=== PATIENT | female | born 1955 | race Caucasian/White ===

== ENCOUNTER 2018-08-16 14:50 | Outpatient (REF) | payer BC, SELFPAY ==
[2018-08-16 21:46] LABS: Anion Gap 13.3 mmol/L (3-11); BUN 17 mg/dL (7-18); CO2 25.7 mmol/L (21.0-32.0); Calcium 8.9 mg/dL (8.5-10.1); Chloride 103 mmol/L (98-107); Cholesterol 189 mg/dL (50-200); Glucose 100 mg/dL (70-100); HDL Cholesterol 56 mg/dL (40-60); LDL CHOLESTEROL 109 mg/dL (<100); Potassium 4.3 mmol/L (3.5-5.1); Sodium 142 mmol/L (136-145); Triglyceride 137 mg/dL (30-150)
[2018-08-16 23:18] LABS: Hemoglobin A1C 6.1 % (4.5-6.2)
== END 2018-08-16 15:10 ==
LOC: NCHCN 14:50
PROVIDERS: PCP Nurse Practitioner Family; Visit Provider Nurse Practitioner Family
DX: M79.631 Pain in right forearm (principal); Z51.81 Encounter for therapeutic drug level monitoring; I10 Essential (primary) hypertension
CPT/HCPCS: 80048; 80061; 83721; 83036

== ENCOUNTER 2018-12-20 10:06 | Outpatient (REF) | payer BC, SELFPAY ==
[2018-12-21 10:23] LABS: TSH 5.71 uIU/mL (0.358-3.74)
[2018-12-21 14:15] LABS: FREE T4 0.96 ng/dL (0.76-1.46)
[2018-12-23 10:26] LABS: Thyroglobulin Antibody 17 U/mL (<61); Thyroperoxidase Antibody 152 U/mL (<61)
== END 2018-12-20 10:26 ==
LOC: NCHCN 10:06
PROVIDERS: PCP Nurse Practitioner Family; Visit Provider Nurse Practitioner Family
DX: R94.6 Abnormal results of thyroid function studies (principal)
CPT/HCPCS: 84439; 84443; 86376; 86800

== ENCOUNTER 2019-11-27 10:06 | Outpatient (REF) | payer BC, SELFPAY ==
[2019-11-27 21:15] LABS: TSH 1.23 uIU/mL (0.36-3.74)
== END 2019-11-27 10:26 ==
LOC: NCHCN 10:06
PROVIDERS: PCP Nurse Practitioner Family; Visit Provider Registered Nurse
DX: E03.9 Hypothyroidism, unspecified (principal)
CPT/HCPCS: 84443

== ENCOUNTER 2020-01-17 14:03 | Outpatient (REF) | payer BC, SELFPAY ==
[2020-01-17 22:19] LABS: Anion Gap 12.6 mmol/L (3-11); BUN 21 mg/dL (7-18); CO2 25.4 mmol/L (21.0-32.0); CREATININE 0.91 mg/dL (0.55-1.02); Chloride 103 mmol/L (98-107); Glucose 105 mg/dL (74-106); Potassium 4.1 mmol/L (3.5-5.1); Sodium 141 mmol/L (136-145)
== END 2020-01-17 14:23 ==
LOC: NCHCN 14:03
PROVIDERS: PCP Nurse Practitioner Family; Visit Provider Nurse Practitioner Family
DX: I10 Essential (primary) hypertension (principal)
CPT/HCPCS: 80048

== ENCOUNTER 2020-02-05 13:38 | Outpatient (REF) | payer BC, SELFPAY ==
[2020-02-05 21:09] LABS: Anion Gap 10.7 mmol/L (3-11); BUN 19 mg/dL (7-18); CO2 26.3 mmol/L (21.0-32.0); CREATININE 0.84 mg/dL (0.55-1.02); Calcium 8.8 mg/dL (8.5-10.1); Chloride 103 mmol/L (98-107); Glucose 98 mg/dL (74-106); Potassium 4.2 mmol/L (3.5-5.1); Sodium 140 mmol/L (136-145)
== END 2020-02-05 13:58 ==
LOC: NCHCN 13:38
PROVIDERS: PCP Nurse Practitioner Family; Visit Provider Nurse Practitioner Family
DX: I10 Essential (primary) hypertension (principal)
CPT/HCPCS: 80048

== ENCOUNTER 2020-03-12 14:34 | Outpatient (REF) | payer BC, SELFPAY ==
[2020-03-12 20:41] LABS: Anion Gap 7.7 mmol/L (3-11); BUN 16 mg/dL (7-18); CO2 32.3 mmol/L (21.0-32.0); Calcium 9.1 mg/dL (8.5-10.1); Chloride 98 mmol/L (98-107); Glucose 118 mg/dL (74-106); Potassium 3.2 mmol/L (3.5-5.1); Sodium 138 mmol/L (136-145)
== END 2020-03-12 14:54 ==
LOC: NCHCN 14:34
PROVIDERS: PCP Nurse Practitioner Family; Visit Provider Nurse Practitioner Family
DX: I10 Essential (primary) hypertension (principal)
CPT/HCPCS: 80048

== ENCOUNTER 2020-05-06 09:40 | Outpatient (REF) | payer BC, SELFPAY ==
[2020-05-06 21:32] LABS: Hemoglobin A1C 6.1 % (3.8-5.6)
[2020-05-06 21:58] LABS: Anion Gap 8.9 mmol/L (3-11); BUN 20 mg/dL (7-18); CO2 29.1 mmol/L (21.0-32.0); CREATININE 0.94 mg/dL (0.55-1.02); Calcium 8.9 mg/dL (8.5-10.1); Chloride 102 mmol/L (98-107); Estimated GFR 59.95 (mL/min/1.73m2); Glucose 103 mg/dL (74-106); Magnesium 2.2 mg/dL (1.8-2.4); Potassium 3.8 mmol/L (3.5-5.1); Sodium 140 mmol/L (136-145); TSH 1.04 uIU/mL (0.36-3.74); Vitamin B12 406 pg/mL (193-986)
== END 2020-05-06 10:00 ==
LOC: NCHCN 09:40
PROVIDERS: PCP Nurse Practitioner Family; Visit Provider Nurse Practitioner Family
DX: I10 Essential (primary) hypertension (principal); R73.03 Prediabetes; E03.9 Hypothyroidism, unspecified; F31.81 Bipolar II disorder; K21.9 Gastro-esophageal reflux disease without esophagitis; G31.84 Mild cognitive impairment of uncertain or unknown etiology
CPT/HCPCS: 80048; 82607; 83036; 83735; 84443

== ENCOUNTER 2020-11-04 17:19 | Outpatient (REF) | payer BC, SELFPAY ==
[2020-11-07 23:36] LABS: COVID-19 RT-PCR Result NEGATIVE (Negative)
== END 2020-11-04 17:39 ==
LOC: NCHCN 17:19
PROVIDERS: PCP Nurse Practitioner Family; Visit Provider Nurse Practitioner Family
DX: R05 Cough (principal)
CPT/HCPCS: U0003

== ENCOUNTER 2021-03-21 21:43 | Outpatient (REF) | payer MEDICARE, BC, SELFPAY ==
[2021-03-21 21:52] LABS: HCT 37.9 % (36.0-46.0); HGB 12.5 g/dL (11.2-15.7); MCH 29.1 pg (27.0-33.0); MCV 88.3 fL (80-95); MPV 10.7 fL (8.0-11.0); Platelet Count 367 10^3/uL (130-400); RBC 4.29 10^6/uL (3.93-5.22); RDW 12.6 % (11.7-14.6); RDW-SD 40.7 fL; WBC 6.09 10^3/uL (4.4-10.8)
[2021-03-21 22:12] LABS: Hemoglobin A1C 6.1 % (<5.7)
[2021-03-21 22:25] LABS: ALT 33 U/L (14-59); AST 16 U/L (15-37); Albumin 3.6 g/dL (3.4-5.0); Alkaline Phosphatase 104 U/L (46-116); Anion Gap 10.1 mmol/L (3-11); BUN 22 mg/dL (7-18); Bilirubin, Total 0.3 mg/dL (0.2-1.0); CO2 27.9 mmol/L (21.0-32.0); CREATININE 0.8 mg/dL (0.55-1.02); Calcium 8.8 mg/dL (8.5-10.1); Calculated LDL 104 mg/dL (<100); Chloride 105 mmol/L (98-107); Cholesterol 197 mg/dL (<200); Glucose 95 mg/dL (74-106); HDL Cholesterol 51 mg/dL (40-60); Potassium 3.8 mmol/L (3.5-5.1); Sodium 143 mmol/L (136-145); TSH 2.22 uIU/mL (0.36-3.74); Total Protein 7.2 g/dL (6.4-8.2); Triglyceride 212 mg/dL (<150)
[2021-03-23 11:02] LABS: COVID-19 RT-PCR UVMMC Result Negative (Negative)
[2021-03-24 05:12] LABS: Vitamin D 25 Total 21.2 ng/mL (30-100)
== END 2021-03-21 21:44 | disposition home or self-care (01) ==
LOC: NCHCN 21:43
PROVIDERS: PCP Nurse Practitioner Family; Visit Provider Internal Medicine
DX: I10 Essential (primary) hypertension (principal); E03.9 Hypothyroidism, unspecified; R73.03 Prediabetes; I45.81 Long QT syndrome; F31.81 Bipolar II disorder; E78.5 Hyperlipidemia, unspecified; Z20.822 Contact with and (suspected) exposure to COVID-19; E55.9 Vitamin D deficiency, unspecified
CPT/HCPCS: 80053; 80061; 82306; 85027; 87635; U0003; U0005; 83036; 84443

== ENCOUNTER → 2021-07-10 14:36 | Outpatient (BNVA) | payer MEDICARE, BC, SELFPAY | PROVIDERS: PCP Nurse Practitioner Family; Referring Provider Nurse Practitioner Family; Visit Provider Nurse Practitioner Adult Health | DX: F39 Unspecified mood [affective] disorder (principal); S06.0X1S Concussion with loss of consciousness of 30 minutes or less, sequela | CPT/HCPCS: 99204 ==

== ENCOUNTER 2021-10-31 15:06 | Outpatient (REF) | payer MEDICARE, BC, SELFPAY ==
[2021-10-31 14:14] LABS: HCT 39.3 % (36.0-46.0); HGB 12.9 g/dL (11.2-15.7); MCH 28.6 pg (27.0-33.0); MCHC 32.8 % (32.0-36.0); MCV 87.1 fL (80-95); MPV 11.1 fL (8.0-11.0); Platelet Count 331 10^3/uL (130-400); RBC 4.51 10^6/uL (3.93-5.22); RDW 12.6 % (11.7-14.6); RDW-SD 40.1 fL; WBC 5.87 10^3/uL (4.4-10.8)
[2021-10-31 14:36] LABS: Hemoglobin A1C 5.8 % (<5.7)
[2021-10-31 15:05] LABS: TSH 1.37 uIU/mL (0.36-3.74); Vitamin B12 421 pg/mL (193-986)
[2021-11-03 05:40] LABS: Vitamin D 25 Total 26.6 ng/mL (30-100)
== END 2021-10-31 15:07 | disposition home or self-care (01) ==
LOC: NCHCN 15:06
PROVIDERS: PCP Nurse Practitioner Family; Visit Provider Nurse Practitioner Family
DX: E55.9 Vitamin D deficiency, unspecified (principal); I10 Essential (primary) hypertension; E03.9 Hypothyroidism, unspecified; E78.5 Hyperlipidemia, unspecified; K21.9 Gastro-esophageal reflux disease without esophagitis; R73.03 Prediabetes; R41.82 Altered mental status, unspecified; F03.90 Unspecified dementia, unspecified severity, without behavioral disturbance, psychotic disturbance, mood disturbance, and anxiety
CPT/HCPCS: 82306; 85027; 82607; 83036; 84443

== ENCOUNTER 2022-05-05 15:23 | Outpatient (REF) | payer MEDICARE, SELFPAY ==
[2022-05-05 15:30] LABS: Anion Gap 9.3 mmol/L (3-11); BUN 11 mg/dL (7-18); CO2 26.7 mmol/L (21.0-32.0); CREATININE 0.8 mg/dL (0.55-1.02); Calcium 9.2 mg/dL (8.5-10.1); Chloride 104 mmol/L (98-107); Glucose 89 mg/dL (74-106); Potassium 4.5 mmol/L (3.5-5.1); Sodium 140 mmol/L (136-145)
[2022-05-07 05:45] LABS: Vitamin D 25 Total 19.4 ng/mL (30-100)
== END 2022-05-05 15:24 | disposition home or self-care (01) ==
LOC: NCHCN 15:23
PROVIDERS: PCP Nurse Practitioner Family; Visit Provider Nurse Practitioner Family
DX: R73.03 Prediabetes (principal); I10 Essential (primary) hypertension; E55.9 Vitamin D deficiency, unspecified
CPT/HCPCS: 80048; 82306; 83036

== ENCOUNTER 2022-06-15 16:28 | Outpatient (REF) | payer MEDICARE, SELFPAY | END 2022-06-15 16:29 | disposition home or self-care (01) | LOC: NCHCN 16:28 | PROVIDERS: PCP Nurse Practitioner Family; Visit Provider Nurse Practitioner Family | DX: R39.9 Unspecified symptoms and signs involving the genitourinary system (principal) | CPT/HCPCS: 87077; 87086; 87186 ==

== ENCOUNTER 2022-09-25 13:00 | Outpatient (REF) | payer MEDICARE, SELFPAY ==
[2022-09-25 16:32] LABS: Vitamin D 25 Total 26.5 ng/mL (30-100)
== END 2022-09-25 13:01 | disposition home or self-care (01) ==
LOC: NCHCN 13:00
PROVIDERS: PCP Nurse Practitioner Family; Visit Provider Nurse Practitioner Family
DX: E55.9 Vitamin D deficiency, unspecified (principal)
CPT/HCPCS: 82306

== ENCOUNTER 2022-12-16 17:02 | Outpatient (REF) | payer MEDICARE, SELFPAY ==
[2022-12-16 21:35] LABS: Hemoglobin A1C 5.9 % (<5.7)
[2022-12-16 21:55] LABS: Anion Gap 8.7 mmol/L (3-11); BUN 16 mg/dL (7-18); CO2 27.3 mmol/L (21.0-32.0); CREATININE 0.9 mg/dL (0.55-1.02); Calcium 9.4 mg/dL (8.5-10.1); Chloride 104 mmol/L (98-107); Estimated GFR 70.51 (mL/min/1.73m2); Glucose 108 mg/dL (74-106); Potassium 4.1 mmol/L (3.5-5.1); Sodium 140 mmol/L (136-145); TSH 2.69 uIU/mL (0.36-3.74)
== END 2022-12-16 17:03 | disposition home or self-care (01) ==
LOC: NCHCN 17:02
PROVIDERS: PCP Nurse Practitioner Family; Visit Provider Nurse Practitioner Family
DX: E03.9 Hypothyroidism, unspecified (principal); I10 Essential (primary) hypertension; R73.03 Prediabetes; E66.8 Other obesity
CPT/HCPCS: 80048; 83036; 84443

== ENCOUNTER 2023-02-18 10:19 | Outpatient (REF) | payer MEDICARE, SELFPAY ==
[2023-02-18 17:29] LABS: Anion Gap 9.6 mmol/L (3-11); BUN 15 mg/dL (7-18); CO2 26.4 mmol/L (21.0-32.0); Calcium 9.5 mg/dL (8.5-10.1); Chloride 106 mmol/L (98-107); Estimated GFR 61.75 (mL/min/1.73m2); Glucose 126 mg/dL (74-106); Sodium 142 mmol/L (136-145)
[2023-02-18 17:52] LABS: Hemoglobin A1C 5.8 % (<5.7)
[2023-02-18 18:12] LABS: Vitamin D 25 Total 23.8 ng/mL (30-100)
== END 2023-02-18 10:20 | disposition home or self-care (01) ==
LOC: NCHCN 10:19
PROVIDERS: PCP Nurse Practitioner Family; Visit Provider Nurse Practitioner Family
DX: R73.03 Prediabetes (principal); E55.9 Vitamin D deficiency, unspecified; I10 Essential (primary) hypertension; E66.9 Obesity, unspecified
CPT/HCPCS: 80048; 82306; 83036

== ENCOUNTER 2023-03-22 18:59 | Outpatient (REF) | payer MEDICARE, SELFPAY | END 2023-03-22 19:00 | disposition home or self-care (01) | LOC: LBN 18:59 | PROVIDERS: PCP Nurse Practitioner Family; Visit Provider Nurse Practitioner Family | DX: R30.0 Dysuria (principal) | CPT/HCPCS: 87086 ==

== ENCOUNTER 2024-01-18 14:56 | Outpatient (REF) | payer MEDICARE, SELFPAY ==
[2024-01-18 15:22] LABS: HGB 13.8 g/dL (11.2-15.7); MCH 29.7 pg (27.0-33.0); MCHC 33.7 % (32.0-36.0); MCV 88 fL (80-95); MPV 11.1 fL (8.0-11.0); Platelet Count 350 10^3/uL (130-400); RBC 4.64 10^6/uL (3.93-5.22); RDW 12.3 % (11.7-14.6); RDW-SD 39.7 fL; WBC 6.32 10^3/uL (4.4-10.8)
[2024-01-18 15:41] LABS: Hemoglobin A1C 5.7 % (<5.7)
[2024-01-18 15:58] LABS: ALT 19 U/L (14-59); AST 11 U/L (15-37); Albumin 3.6 g/dL (3.4-5.0); Alkaline Phosphatase 117 U/L (46-116); Anion Gap 11.6 mmol/L (3-11); BUN 20 mg/dL (7-18); Bilirubin, Total 0.4 mg/dL (0.2-1.0); CO2 25.4 mmol/L (21.0-32.0); CREATININE 0.8 mg/dL (0.55-1.02); Calcium 9.4 mg/dL (8.5-10.1); Chloride 105 mmol/L (98-107); Estimated GFR 80.71 (mL/min/1.73m2); Glucose 131 mg/dL (74-106); Potassium 3.9 mmol/L (3.5-5.1); Sodium 142 mmol/L (136-145); TSH 3.62 uIU/Ml (0.36-3.74); Total Protein 7.4 g/dL (6.4-8.2); Vitamin B12 270 pg/mL (193-986); Vitamin D 25 Total 27.3 ng/mL (30-100)
== END 2024-01-18 14:57 | disposition home or self-care (01) ==
LOC: NCHCN 14:56
PROVIDERS: PCP Nurse Practitioner Family; Referring Provider Nurse Practitioner Family; Visit Provider Nurse Practitioner Family
DX: R73.03 Prediabetes (principal); E55.9 Vitamin D deficiency, unspecified
CPT/HCPCS: 80053; 82306; 85027; 82607; 83036; 84443

== ENCOUNTER 2024-02-22 13:02 | Outpatient (REF) | payer MEDICARE, SELFPAY | END 2024-02-22 13:03 | disposition home or self-care (01) | LOC: NCHCN 13:02 | PROVIDERS: PCP Nurse Practitioner Family; Referring Provider Nurse Practitioner Family; Visit Provider Nurse Practitioner Family | DX: N39.0 Urinary tract infection, site not specified (principal) | CPT/HCPCS: 87077; 87086; 87186 ==

== ENCOUNTER 2024-09-18 01:22 | Outpatient (CLI) | payer MEDICARE, SELFPAY ==
--- NOTE | 2024-09-18 08:30 | DI.US_ITS ---
APPROVED REPORT EXAM: Comprehensive 2D, Doppler, and color-flow Echocardiogram Patient Location: Out-Patient First Assistant Manager: Naina Bacon RDCS (AE) Indications: Cardiac murmur, HTNm F/H CAD Other Information Study Quality: Adequate Conclusion Normal left ventricular wall thickness and chamber size. Ejection fraction is 62%. Wall motion is n ormal Normal right ventricular size and function Both atria are normal in size Trileaflet aortic valve with trace regurgitation Normal mitral valve with mild regurgitation Estimated right ventricular systolic pressure is 27 mmHg Ascending aorta measures 3.54 cm Wall motion Left Ventricle The left ventricle is normal size. The left ventricular systolic function is normal. The left ventric ular ejection fraction is within the normal range. There is normal left ventricular wall thickness. T here is normal LV segmental wall motion. There is no ventricular septal defect visualized. LVEF is 62 %. Right Ventricle The right ventricle is normal size. The right ventricular systolic function is normal. Atria The left atrium size is normal. The right atrium size is normal. The interatrial septum is intact wit h no evidence for an atrial septal defect. Aortic Valve The aortic valve is normal in structure. Aortic valve is trileaflet. There is no aortic valvular sten osis. Trace aortic regurgitation.n. Mitral Valve The mitral valve is normal in structure. No evidence of mitral valve stenosis. Mild mitral regurgitat ion. Tricuspid Valve The tricuspid valve is normal in structure. There is no tricuspid valve stenosis. Trace tricuspid reg urgitation. The RVSP is 26.7_ mmHg. Pulmonic Valve The pulmonary valve is normal in structure. There is no pulmonic valvular stenosis. There is no pulmo [place] valvular regurgitation. Great Vessels The aortic root is normal in size. The ascending aorta is mildly dilated. Aortic arch is normal in ca liber. IVC is normal in size and collapses >50% with inspiration. Pericardium There is no pericardial effusion. 2D Dimensions IVSD d PLAX 0.92 cm F: 0.6-1.0 Ao Root d 2.97 cm F: 2.7 - 3.3 LVPW d PLAX 0.95 cm F: 0.6 - 1.0 Ao Asc Diam d 3.54 cm F: 2.3 - 3.1 LVID d PLAX 4.67 cm F: 3.8 - 5.2 LVDs 3.11 cm F: 2.2 - 3.5 LV EF Teichholz 62.2 % FS 33.51 % LV EDV (Teich) 101.0 mL LV ESV (Teich) 38.1 mL M-Mode TAPSE 2.59 cm (M/F) >1.7 Auto EF LV EDV A4C 95.1 mL LV EDV A2C 79.4 mL LV EDV BP 87.3 mL LV ESV A4C 37.9 mL LV ESV A2C 29.6 mL LV ESV BP 33.4 mL LVEF(%) A4C 60.2 % LVEF(%) A2C 62.7 % LVEF(%) BP 61.8 % LV SV A4C 57.3 ml LV SV A2C 49.8 ml LV SV BP 53.9 ml LV CO A4C 2.9 L/min LV CO A2C 2.4 L/min LV CO BP 2.7 L/min HR A4C 50.13 BPM HR A2C 48.84 BPM LV EDV Index (BP) LA Volume LA Length A4C 4.9 cm LA Length A2C 5.1 cm LA Area A4C s 14.72 cm2 LA Area A2C s 16.74 cm2 LA Vol A4C A-L 37.46 mL LA Vol A2C A-L 46.35 mL LA Vol Biplane A-L 42.6 mL LA Vol/BSA A4C A-L LA Vol/BSA A2C A-L LA Vol/BSA BP A-L 20.7 mL/m2 LA Vol A4C MOD 35.3 mL LA Vol A2C MOD 44.5 mL LA Vol BP MOD 40.5 mL RA Volume RA Area A4C 12.0 cm2 RA ESV A4C (A-L) 26.5mL RA Vol/BSA A4C A-L RA Length A4C 4.6 cm RA ESV A4C (MOD) 25.4mL LV Diastology MV E' medial 0.092 (>0.07 m/s) MV E Vmax 1.00 (0.4-1.3 m/s) MV E/E' MED 10.90 (<14) MV A Vmax 1.15 (0.4-1.3 m/s) MV E' lateral 0.082 (>0.1 m/s) E/A Ratio 0.9 MV E/E' LAT 12.21 (<14) MV E' Average 0.087 m/s MV E/E'(average) 11.52 Aortic Valve AoV Vmax 1.18 m/s LVOT Vmax 1.30 m/s AoV Peak Grad 5.6 mmHg LVOT Peak Grad 6.8 mmHg AoV Area (Vmax) 3.29 cm2 LVOT VTI 0.290 m AoV VTI 0.280 m LVOT Mean Grad 3.2 mmHg AoV Mean Sebastien. 0.71 m/s LVOT SV 86.53 mL AoV Mean Grad 2.5 mmHg LVOT Diam s 1.95 cm AoV Area (VTI) 3.09 cm2 AV Regurg Peak Gr. 5.59 mmHg Velocity Ratio 1.10 Mitral Valve MV DT 289 (160-240 msec) MV Vmax TIPS 1.22 m/s MV Mean Grad 2.2 (<2mmHg) MV VTI 0.551 m Pulmonary Valve PV Vmax 1.05 (0.5-1.5 m/s) RVOT Vmax 0.79 m/s PV Peak Grad 4.4 mmHg RVOT Peak Gr. 2.5 mmHg PV Mean Sebastien 0.75 m/s RVOT VTI 0.219 m PV Mean Grad 2.5 mmHg RVOT Mean Gr. 1.5 mmHg Tricuspid Valve RA Pressure 3.00 mmHg TR Vmax 2.43 m/s TV S' 0.17 m/s TR Peak Grad 23.6 mmHg RVSP (TR) 26.7 mmHg
== END 2024-09-18 01:42 ==
LOC: DI 01:22
PROVIDERS: PCP Nurse Practitioner Family; Visit Provider Nurse Practitioner Family
DX: R01.1 Cardiac murmur, unspecified (principal)
CPT/HCPCS: 93306

== ENCOUNTER 2025-01-02 18:09 | Outpatient (REF) | payer MEDICARE, SELFPAY ==
[2025-01-02 22:33] LABS: Anion Gap 7.5 mmol/L (3-11); BUN 13 mg/dL (7-18); CO2 29.5 mmol/L (21.0-32.0); CREATININE 0.9 mg/dL (0.55-1.02); Calcium 9.5 mg/dL (8.5-10.1); Calculated LDL 73 mg/dL (<100); Chloride 106 mmol/L (98-107); Cholesterol 184 mg/dL (<200); Estimated GFR 69.64 (mL/min/1.73m2); Glucose 94 mg/dL (74-106); HDL Cholesterol 68 mg/dL (40-60); Potassium 3.7 mmol/L (3.5-5.1); Sodium 143 mmol/L (136-145); TSH 2.65 uIU/mL (0.36-3.74); Triglyceride 218 mg/dL (<150); Vitamin D 25 Total 30.7 ng/mL (30-100)
== END 2025-01-02 18:10 | disposition home or self-care (01) ==
LOC: NCHCN 18:09
PROVIDERS: PCP Nurse Practitioner Family; Visit Provider Nurse Practitioner Family
DX: I10 Essential (primary) hypertension (principal); E03.9 Hypothyroidism, unspecified; R73.03 Prediabetes; E55.9 Vitamin D deficiency, unspecified; E78.5 Hyperlipidemia, unspecified
CPT/HCPCS: 80048; 80061; 82306; 83036; 84443

== ENCOUNTER 2025-04-26 02:34 | Outpatient (CLI) | payer MEDICARE, SELFPAY ==
--- NOTE | 2025-04-26 | DI.MAMMO_ITS ---
Exam(s) MAMMO SCREENING EXAM: MAMMO SCREENING CLINICAL HISTORY: Screening, Z12.31 TECHNIQUE: Bilateral full field digital CC and MLO mammographic images were obtained with 3D tomosyn thesis and utilizing computer aided detection (CAD). COMPARISON: Available for comparison. FINDINGS: Masses/Architectural Distortion: No suspicious masses or areas of architectural distortion are presen t. There is a stable nodule in the upper right breast on the MLO view. There is a stable nodular de nsity in the posterior left breast seen on the craniocaudad view. Microcalcifications: No suspicious pleomorphic-type are seen. Skin Thickening/Nipple Retraction: None. IMPRESSION: 1. No significant interval change with no specific features of malignancy noted. 2. Unless there is more urgent need, screening mammography is recommended, as per [place] [employer] guidelines. BI-RADS Category 2 - Benign Findings Breast Density - Category C - The breast are heterogeneously dense, which may obscure small masses. Breast density Category C or D implies that the patient has dense breast tissue. Dense breast tissue can make it harder to find cancer on a mammogram. Dense breast tissue is also associated with an incr eased risk of breast cancer. This information about the result of the mammogram report was provided to the patient to raise their awareness. Use this report when you speak with the patient about their risks for breast cancer, which includes their family history. At that time, you may recommend additional screening tests (Ultrasoun d or MRI) as these tests may add significant information. A negative radiographic report should not delay biopsy if a dominant or clinically suspicious mass is present. Up to ten percent of cancers are not identified on mammography. A negative report may reinforce clinical impression. Adenosis and dense breasts may obscure an underlying neoplasm. False positive reports average 6 to 10%. Patient will receive a letter notifying them of these results.
== END 2025-04-26 02:54 ==
LOC: DI 02:34
PROVIDERS: PCP Nurse Practitioner Family; Visit Provider Nurse Practitioner Family
DX: Z12.31 Encounter for screening mammogram for malignant neoplasm of breast (principal); R92.333 Mammographic heterogeneous density, bilateral breasts; D24.1 Benign neoplasm of right breast
CPT/HCPCS: 77063; 77067

== ENCOUNTER → 2025-07-26 10:15 | Outpatient (BNVA) | payer MEDICARE, SELFPAY | PROVIDERS: PCP Nurse Practitioner Family; Referring Provider Nurse Practitioner Family; Visit Provider Physical Therapy Assistant | DX: Z12.11 Encounter for screening for malignant neoplasm of colon (principal) | CPT/HCPCS: 99024 ==

== ENCOUNTER 2025-08-23 09:51 | Day surgery (SDC) | payer MEDICARE, SELFPAY ==
[2025-08-23 10:26] VITALS: BP 126/75; PULSE 71; RESP 18; TEMP 36.4; O2SAT 98
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
[2025-08-23 10:45] VITALS: BMI 32.6
[2025-08-23] MEDS: Lactated Ringers 1,000 ML 80 ML IV (10:53)
--- NOTE | 2025-08-23 10:57 | W.PM.DSUDISC ---
Date of service: 08/23/25 Discharge Plan Disposition Patient Disposition: Home Condition: Stable Discharge Details Attending Provider: Luz Hendrickson Primary Care Provider: Muriel Sauceda Recommendations for Follow Up Recommended tests to be ordered by follow up provider: Next colonoscopy due in 5 years Home Meds and New Rx's Prescriptions: Discontinued bisacodyl [Dulcolax (bisacodyl)] 5 mg tablet,delayed release (DR/EC) 5 mg PO ONCE Qty: 4 0RF Rx Instructions: Take per colonoscopy instructions provided by ordering providers office polyethylene glycol 3350 17 gram/dose powder 17 g PO ONCE Qty: 238 0RF Rx Instructions: Take per colonoscopy instructions provided by ordering providers office No Action buspirone 10 mg tablet 10 mg PO BID hydroxyzine HCl 50 mg tablet 100 mg PO QHS hydrochlorothiazide 12.5 mg capsule 12.5 mg PO DAILY donepezil 10 mg tablet 10 mg PO DAILY amlodipine 5 mg tablet 5 mg PO DAILY metformin 500 mg tablet 500 mg PO DAILY atorvastatin 20 mg tablet 20 mg PO DAILY levothyroxine 75 mcg capsule 75 mcg PO DAILY latanoprost 0.005 % drops 1 drp ophthalmic (eye) QPM omeprazole 20 mg capsule,delayed release(DR/EC) 20 mg PO QPM fluoride (sodium) [SF 5000 Plus] 1.1 % cream See Rx Instructions .ROUTE .COMPLEX Rx Instructions: use as directed; lamotrigine 150 mg tablet 225 mg PO DAILY Rx Instructions: 100mg tab by mouth twice a day 25 mg tab by mouth once a day total daily dose is 225mg losartan 100 mg tablet 50 mg PO DAILY acetylcysteine [NAC] 600 mg capsule 1,200 mg PO BID cyanocobalamin (vitamin B-12) 1,000 mcg capsule 1,000 mcg PO DAILY gabapentin 100 mg capsule 100 mg PO DAILY Ozempic 1 mg/dose (4 mg/3 mL) pen injector 1 mg subcut QWEEK risperidone 1 mg tablet 1.5 mg PO QHS trazodone 50 mg tablet 100 mg PO DAILY prazosin 1 mg capsule 1 mg PO QHS prazosin 2 mg capsule 2 mg PO QHS potassium chloride 20 mEq tablet extended release 20 meq PO DAILY vitamin V03-[id number] acid 500-400 mcg tablet 2 tab PO DAILY Rx Instructions: administer with a meal Auvelity 45-105 mg tablet, IR and ER, biphasic 1 tab PO BID Rx Instructions: administer at least 8 hours apart cholecalciferol (vitamin D3) 50 mcg (2,000 unit) capsule 100 mcg PO DAILY methylphenidate HCl [Concerta] 18 mg tablet extended release 24hr 36 mg PO DAILY Discharge Instructions Additional Instructions: Normal colonoscopy. No polyps this time. Next colonoscopy will be due in 5 years due to prior colon polyps. High fiber diet and fiber supplementation recommended for diverticulosis. Stand Alone Forms: Anesthesia Discharge InstJose Cruz, Tommy Barcenas (DSU) Activity:: Activity as Tolerated Diet:: As Tolerated Discharge Orders Discharge Orders: Discharge Order (Routine); Ordered 08/23/25 Ordered By: Luz Hendrickson DS: Diagnosis Discharge Diagnosis (1) Screening for colorectal cancer: Status: Acute (2) Sigmoid diverticulosis: Status: Acute
--- NOTE | 2025-08-23 10:59 | COLE_ITS ---
Date of service: 08/23/25 Time of Service: 11:30 Colonoscopy Report Date of procedure: 08/23/25 Pre-op diagnosis general: Screening for colorectal cancer Post-op diagnosis procedure note: same (diverticulosis) Procedure: Colonoscopy Surgeon: Luz Hendrcikson Anesthesia Type: General:No Airway Estimated blood loss (mL): 0 Pathology: none sent Complications: None Indications: screening for colorectal cancer Prep: Miralax/Dulcolax (good-fair) Procedure Description: Informed consent was obtained and the patient was taken to the procedure area. The patient was placed in left lateral decubitus position on the procedure table. Timeout was performed. Anesthesia was induced. A lubricated colonoscope was inserted through the anus and passed to the cecum. The cecum was identified by the ileocecal valve and the appendiceal orifice. The scope was then slowly withdrawn and the colonic and rectal mucosa examined. TI intubated and examined. It appears normal. There are no colon or rectal mass lesions, polyps, AVMs. There is no inflammatory change. Severe sigmoid diverticulosis was noted. The scope was retroflexed in the anorectal junction examined. Uncomplicated int ernal hemorrhoids present. Assessment and plan: Screening for colorectal cancer diverticulosis of sigmoid colon Normal colonoscopy. No polyps. Next colonoscopy will be due in 5 years due to prior colon polyps. High fiber diet and fiber supplementation recommended for diverticulosis.
[2025-08-23 11:41] VITALS: BP 123/65; PULSE 59; RESP 18; TEMP 36; O2SAT 94
--- NOTE | 2025-08-23 11:48 | W.ANESPOSTOP ---
Postoperative Evaluation Date, Time and Location Date Performed: 08/23/25 Time Performed: 11:48 Patient Location: Day Surgery Unit Vital Signs Most Recent Imported Vital Signs: Most Recent Vital Signs Temp Pulse Resp BP Pulse Ox 36.0 C L 59 L 18 123/65 94 08/23/25 11:41 08/23/25 11:41 08/23/25 11:41 08/23/25 11:41 08/23/25 11:41 Pain Score Most Recent Pain Score: Most Recent Pain Score Pain Level 0 08/23/25 11:41 Assessment Mental Status: Awake (Alert & Oriented to Patient Baseline) Airway and Respiratory Function: Patent airway with normal (patient baseline) respiratory exam Cardiovascular Function: Hemodynamically Stable Hydration Status: Adequately Hydrated Nausea & Vomiting: No Nausea or Vomiting Pain: Pt. Denies Any Pain Peripheral Nerve Block: Patient did not receive a nerve block
[2025-08-23 12:09] VITALS: BP 138/67; PULSE 54; RESP 18; TEMP 36.2; O2SAT 97
== END 2025-08-23 12:23 | disposition home or self-care (01) ==
PROVIDERS: PCP Nurse Practitioner Family; Visit Provider Surgery
PROC: 0DJD8ZZ Inspection of Lower Intestinal Tract, Via Natural or Artificial Opening Endoscopic (ICD-10-PCS; CPT 45378; principal; 2025-08-23 11:15)
DX: Z12.11 Encounter for screening for malignant neoplasm of colon (principal); Z12.12 Encounter for screening for malignant neoplasm of rectum; K57.30 Diverticulosis of large intestine without perforation or abscess without bleeding
CPT/HCPCS: G0121; J2704

== ENCOUNTER 2025-09-24 10:42 | Outpatient (REF) | payer MEDICARE, SELFPAY | END 2025-09-24 10:43 | disposition home or self-care (01) | LOC: NCHCN 10:42 | PROVIDERS: PCP Nurse Practitioner Family; Visit Provider Nurse Practitioner Family | DX: R35.0 Frequency of micturition (principal) | CPT/HCPCS: 87077; 87086; 87186 ==